=== PATIENT | female | born 1985 | race Caucasian/White ===

== ENCOUNTER 2019-01-18 07:05 | Inpatient (IN) | payer OTHER, SELFPAY ==
[2019-01-18 07:42] VITALS: BMI 27.6
[2019-01-18] MEDS: Lactated Ringers 1,000 ML 50 ML IV (07:50)
[2019-01-18] MEDS: Lactated Ringers 500 ML 999 ML IV ×2 (08:05→08:43)
[2019-01-18 08:16] LABS: Absolute Lymphocyte Count 2.51 X10^3/uL (0.83-4.51); Basophil# 0.03 X10^3/uL; Basophil% 0.3 % (0-1); Eosinophil# 0.06 X10^3/uL; Eosinophils% 0.5 % (0-5); Hematocrit 40.8 % (37-47); Hemoglobin 13.5 g/dL (12.0-15.0); Lymphocyte # 2.51 X10^3/ul (4.0); Lymphocyte % 21.6 % (19-41); Mean Corp Hgb Conc 33.1 g/dL (32-36); Mean Corpuscular Hgb 29.2 pg (27.0-32.0); Mean Corpuscular Volume 88.1 fL (81-99); Mean Platelet Vol. 9.3 fl (6.2-12.0); Monocyte# 0.97 X10^3/uL; Monocyte% 8.4 % (0-10); NRBC Flagged by Analyzer 0 % (0-5); Neutrophil # 7.97 X10^3/uL (2.7-7.7); Neutrophil % 68.7 % (47-70); Platelet Count 317 K/mm3 (150-450); RBC Distribution Width CV 13.8 % (11.6-14.6); RBC Distribution Width SD 44.3 fl (35.1-43.9); Red Blood Count 4.63 M/mm3 (4.2-5.4); White Blood Count 11.6 K/mm3 (4.4-11.0)
--- NOTE | 2019-01-18 08:18 | HP.PCM_ITS ---
History and Physical Date of Admission: 01/18/19 Macarena Steele is a 33 yo admitted 40 at weeks 2 days gestation by LMP=7w1d US in active labor; an elective IOL had been scheduled for this morning. course has been normal. She has a history of HSV for which she has been taking Valtrex for prophylaxis since 36 weeks. She is GBS negative. [facility] ANTEPARTUM RECORD - HISTORY AND PHYSICAL (01/18/2019) Name: MACARENA STEELE OB Physician: ZANDRA Hereford's Physician: UNDECIDED ...................................................................... : 1985 Age: 33 Address: [address] [place] [address] Phone: (h) [phone] (o) [phone] Insurance Carrier: MONET [id number] Emergency Contact: KAYCE FREITAS [phone] ...................................................................... Final KIT: 01/16/19 By Ultrasound: 7 weeks 1 day PARITY: (G-Total Pregnancies P-Fullterm,Premature,Induced AB,Spont AB, Ectopics, Multiple,Living) KIT CONFIRMATION: By LMP: 04/11/18 Final KIT: 01/16/19 BLOOD TYPE: scanned AFP: 1 HR PG: GBS: Rublla titer (>10 immune)-- Hepatatis B becca AG-- CULTURES:-- OB PROBLEM LIST: Decline CF and AFP. 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 Drug Use - denies use of street drugs Sexual Activity - Residence - lives in house, one and two stories Place of - [place] Spouse-Sig Other Name - Jayden Steele Spouse-Sig Other Occupation - [employer] worker Spouse-Sig Other Phone No - [phone] Children Name(s) - Kevyn Sandhu PRIOR DELIVERY HISTORY DEL DATE GEST LAB WT LB WT OZ TYPE ANES LABOR TX May 05 40 12 8 6 Vag Epidural No May 26 39 20 8 1 Vag Epidural No ANTEPARTUM FLOW CHART VISIT RTC FU F F NY U U DATE WK WKS HT PN HR M SS BP ED WT NY GL D EF ST __ ____ ___ __ __ ___ __ __ __ ___ __ __ __ ___ __ 01 Jan 40 JMW 6 38 V + + 118/68 0 193 - - 4 50 -2 24 Dec 39 JMW 1 38 V + + 128/68 sl 198 - - S 17 Dec 38 JMW 1 38 + + 112/74 sl 198 tr - 10 Dec 37 JMW 1 37 V + + 110/62 tr 194 tr - 2+ 50 -2 03 Dec 36 JMW 1 36 V + + 106/68 sl 195 tr - 2 50 -2 Nov JMW 2 34 + + 114/66 0 191 tr - Nov 15 JMW 3 31 + + 114/82 0 188 tr - Nov 12 JMW 3 28 + + 114/62 sl 187 tr - Oct 09 JMW 4 24 + + 116/64 0 180 tr - September 03 JMW 4 20 + + 110/68 0 176 - - 16 Aug 01 JMW 4 16 + O 104/64 0 174 - - Jun 27 JMW 4 U+ O 108/64 0 173 tr - ANTEPARTUM NOTE(S): Jan 16 2019: Induce per Request Jan 09 2019: Ctxs-mild, Good FM,Feeling Well Jan 02 2019: Ctxs-mild, Good FM Dec 26 2019: Ctxs-occas, Good FM Dec 19 2019: Doing well, GBS today, and LARC form signed Dec 05 2018: Doing Well Nov 14 2018: doing well, Good FM Oct 24 2018: CBC,OGCT Today,Good FM,Feeling Well Sep 26 2018: Glucola/Instructions given,Good FM Aug 28 2018: Sono Today,Feeling Better Aug 01 2018: Doing well, Declines AFP Jul 04 2018: PNV and NOB Today,Fatigue continues COMPREHENSIVE ANTEPARTUM NOTE(S): Jan 16 2019: Induction per Pit and AROM per Dr Rossi ramirez for 01/18/19 at [facility] level 3 with all paperwork completed signed and faxed with antepartum chart. JT Dec 25 2018: H taken to OB. tkg Jul 10 2018: O positive RI. Hgb 14.6 g/dl. TSH wnl. EB Jul 04 2018: Macarena presents here today for PNV and NOB. 33 y.o. G 3 P 2 non-smoker with history of x 2 (First in 2007 and Second in 2018, both started with Induction) and plans this delivery at [facility], with an Epidural. 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 Reports continuing with periodic nausea and fatigue, but otherwise feeling well. Brief review of major body changes and good nutrition and healthy snacks with ideal weight gain of 20- 25 lbs(guidelines given). Encouraged to drink 1-2 gallons of water/fluids daily with benefits of same discussed as well as she plans to breast feed. Discussed common discomforts in and helpful hints for each with handout given. Reviewed emotional changes from first through third trimester and ways to relax. Genetic screening form filled out and declines both AFP and CF with consent signed. Had chickenpox as a child and has no indoor cats. labs drawn via undersigned in (R) antecubital x 1 attempt with 23 g and labs sent to [facility]. STEFANIE NEW May 30 2019: Macarena Hector presents here today for Missed Menses appointment. 33 y.o. G 3 P 2 non-smoker with regular menses and LMP of 12-25-18 lasting her average of 4 days. UPT is positive today in our Office. Asks to have urine dipped as she has history of recurrent UTI's and was placed on daily antibiotic with last . Urine Dip: + Nitrites, small Leuks, trace Protein, Sp Gr - 1.010 and all others negative. Denies spotting/bleeding thus far and presents at 6 weeks 6 days with an approximate KIT of 01-16-19. History of x 2 with plans to deliver at [facility]. Currently taking an OTC Vitamin. Educational Materials given. Medication list up-dated. LAst pap screening in 2016 with normal results. STEFANIE May 30 2019: ok REVIEW OF SYSTEMS: GENERAL - Denies fever, or chills SKIN - Denies rash, new skin lesions, or change in moles EYES - Denies blurred vision, or change in visual acuity EARS - Denies ear pain, or difficulty hearing NOSE - Denies nasal congestion, discharge, or bleeding MOUTH - Denies sore throat, or difficulty swallowing NECK - Denies pain or swelling RESPIRATORY - Denies shortness of breath, cough, wheezing CARDIOVASCULAR - Denies palpitations, chest pain, orthopnea, PND, peripheral edema, syncope or claudication GASTROINTESTINAL - Denies nausea, vomiting, diarrhea, constipation, Denies abdominal pain, melena and or bright red blood GENITOURINARY - Denies dysuria, frequency of urination, urgency, or hesitancy MUSCULOSKELETAL - Denies joint or muscle pain, or back pain NEUROLOGICAL - Denies localized numbness, weakness, or tingling PSYCHIATRIC - Denies depression, anxiety, substance abuse or suicide attempts ENDOCRINE - Denies heat or cold intolerance, weight loss or gain, increasing thirst HEMATO-IMMUNOLOGIC - Denies easy bruising, bleeding, oral ulcerations or recurrent infections GENETICS SCREENING: Age 35+ years: No Thalassemia: No Neural Tube Defect: No Down Syndrome: No ONEAL-SACHS: No Sickle Cell Disease: No Hemophilia: No Musc. Dystrophy: No Cystic Fibrosis: No-declines screening Gem Chorea: No Mental Retardation: No Fragile X: No Other genetic: No Other defects: No SABs/still births: No Drugs since LMP: Yes INFECTION HISTORY: High risk AIDS: No High risk Hepatitis: No Exposed to TB: No Exposed to Herpes: No Rash/viral illness since LMP: No History of STD: No MENSTRUAL HISTORY: *Menses Amount/Duration: 4 daysMenses Regularity: RegularFrequency: monthlyMenarche (Age Onset): 14* PAST SUMMARY: PARITY: 1. Total Pregnancies............ 3 2. Full Term Pregnancies........ 2 3. Premature.................... 0 4. Abortions - Induced.......... 0 5. Abortions - Spontaneous...... 0 6. Ectopics..................... 0 7. Multiple Births.............. 0 8. Living Children.............. 2 PAST #1: Date of :.................. 06/13/07 Gestation Weeks:................ 39 Length of labor(hours):......... 20 Sex:............................ F Weight-lbs:............... 8 Weight-oz:................ 1 Type of Delivery:............... Vag Type of Anesthesia:............. Epidural Place of Delivery:.............. [place] Treatment of Labor?:.... No Comment: NONE PAST #2: Date of :.................. 04/19/17 Gestation Weeks:................ 40 Length of labor(hours):......... 12 Sex:............................ M Weight-lbs:............... 8 Weight-oz:................ 6 Type of Delivery:............... Vag Type of Anesthesia:............. Epidural Place of Delivery:.............. [place] Treatment of Labor?:.... No Comment: PHYSICAL EXAMINATION General Appearence: 33 yo female in no acute distress Vital Signs: AF, VSS Heart: RRR without rubs or gallops Lungs: CTA x 2 Breasts: deferred Abdomen: gravid Pelvis: Cervix: Presentation: cephalic Station: Fetus: Size: AGA Movement: present FHTs: 150 bpm baseline, moderate variability, with accels, no decels Uterus: Momo Q 2-5 minutes, palpating moderate Labs for : MACARENA STEELE since 04/21/2018 ORDER DATEIN DESCRIPTION VALUE UNITS RANGE A+ COMMENT CBC W/DIFF, AUTOMATED 01/18/19 NOTE Original Ordering Provider: Milagro Richey WBC 11.6 K/mm3 4.4-11.0 H RBC 4.63 M/mm3 4.2-5.4 HGB 13.5 g/dL 12.0-15.0 HCT 40.8 % 37-47 MCV 88.1 fL 81-99 MCH 29.2 pg 27.0-32.0 MCHC 33.1 g/dL 32-36 RDW CV 13.8 % 11.6-14.6 RDW SD 44.3 fl 35.1-43.9 H PLT 317 K/mm3 150-450 MPV 9.3 fl 6.2-12.0 NEUT% 68.7 % 47-70 LY% 21.6 % 19-41 MONO% 8.4 % 0-10 EO% 0.5 % 0-5 BASO% 0.3 % 0-1 IM GRAN % 0.500 % 0.0-0.9 IG% - Immature Granulocytes (promyelocytes, myelocytes and metamyelocytes) > 1% indicates that a LEFT SHIFT is Present. ABSOLUTE NEUT 8.0 X10 3/uL 2.0-7.7 H ABSOLUTE LYMPH 2.51 X10 3/uL 0.83-4.51 NRBC, FLAGGED 0 % 0-5 STREP GP B IGNACIA 12/19/18 STREP GP B IGNACIA Negative Negative . Reviewed by MILAGRO 24-35 Week Labs 10/24/18 HCT/HGB scanned Reviewed by MILAGRO [facility] 07/04/18 HIV Test negative (scanned) Negative Hepatitis B Scanned Negative Hepatitis C Scanned Negative RPR Scanned Non - Reactive Reviewed by KEITH [facility] 07/04/18 Blood Type scanned O Pos Reviewed by KEITH BALDERASP,RFX APTIMA HPV ALL PTHw 05/30/18 DIAGNOSIS: NEGATIVE FOR INTRAEPITHELIAL LESION AND MALIGNANCY. SPECIMEN ADEQUACY: w Satisfactory for evaluation. Endocervical and/or squamous metaplastic cells (endocervical component) are present. . w The HPV DNA reflex criteria were not met with this specimen result therefore, no HPV testing was performed. . Reviewed by [facility] PROVIDER SIGNATURE ( REQUIRED) Impression: IUP at 40w2d Active labor GBS negative Hx of HSV, on HSV prophylaxis, no evidence of outbreak Cat 1 FHTs Plan: Admit to L&D Continuous EFM Epidural on request Expectant management Anticipate vaginal delivery
[2019-01-18] MEDS: fentaNYL-bupivacaine (epidural) 100 ML BAG EPIDURAL (08:49)
--- NOTE | 2019-01-18 09:10 | PCM.PN.OB ---
Subjective: Comfortable with epidural; feeling light pressure with contractions; spouse at bedside and supportive Objective: AVSS FHTs: 130 baseline, moderate variability, with accels, no decels UCs: Q 2-5 Cervix: 7.5/90/-1 per RN at 0900 - Physical Exam General: Alert, Oriented x3, Cooperative, No apparent distress Neurological: Cranial nerves II-XII grossly intact Psych/Mental Status: Normal Affect, Appropriate, Alert and oriented to time, place, person, mood and affect Weight: 193 lb Body Mass Index (BMI) 27.6 Intake and Output for Last 24 Hours 01/16/19 01/17/19 01/18/19 23:59 23:59 23:59 Intake Total 500 / 500 Balance 500 / 500 Laboratory Tests Past 24 Hrs 01/18/19 01/18/19 07:50 07:50 WBC 11.6 H RBC 4.63 Hgb 13.5 Hct 40.8 MCV 88.1 MCH 29.2 MCHC 33.1 RDW Std Deviation 44.3 H RDW Coeff of Park 13.8 Plt Count 317 MPV 9.3 Immature Gran % (Auto) 0.500 Neut % (Auto) 68.7 Lymph % (Auto) 21.6 [place] % (Auto) 8.4 Eos % (Auto) 0.5 Baso % (Auto) 0.3 Absolute Neuts (auto) 8.0 H Absolute Lymphs (auto) 2.51 Nucleated RBC % 0 Blood Type Pending Antibody Screen Pending Medical Necessity - Tobacco Use Smoking Status: Never smoker Assessment/Plan Assessment: IUP at 40w2d GBS neg Hx of HSV, on antiviral prophylaxis, no evidence of outbreak Cat 1 FHTs Plan: Expectant management Anticipate vaginal delivery
--- NOTE | 2019-01-18 11:24 | PCM.PN.OB ---
Subjective: Comfortable with epidural; feeling pressure; spouse at bedside and supportive Objective: FHTs: 125 baseline, moderate variability, with accels, no decels UCs: Q 2-3 minutes Cervix: R ant. lip/100/m - Physical Exam General: Alert, Oriented x3, Cooperative, No apparent distress Neurological: Cranial nerves II-XII grossly intact Psych/Mental Status: Normal Affect, Appropriate, Alert and oriented to time, place, person, mood and affect Weight: 193 lb Body Mass Index (BMI) 27.6 Intake and Output for Last 24 Hours 01/16/19 01/17/19 01/18/19 23:59 23:59 23:59 Intake Total 500 / 500 Balance 500 / 500 Laboratory Tests Past 24 Hrs 01/18/19 01/18/19 07:50 07:50 WBC 11.6 H RBC 4.63 Hgb 13.5 Hct 40.8 MCV 88.1 MCH 29.2 MCHC 33.1 RDW Std Deviation 44.3 H RDW Coeff of Park 13.8 Plt Count 317 MPV 9.3 Immature Gran % (Auto) 0.500 Neut % (Auto) 68.7 Lymph % (Auto) 21.6 [place] % (Auto) 8.4 Eos % (Auto) 0.5 Baso % (Auto) 0.3 Absolute Neuts (auto) 8.0 H Absolute Lymphs (auto) 2.51 Nucleated RBC % 0 Blood Type O POSITIVE Antibody Screen NEGATIVE Medical Necessity - Tobacco Use Smoking Status: Never smoker Assessment/Plan Assessment: IUP @ 40 weeks 2 days GBS Neg HX HSV, on antiviral prophylaxsis, no evidence of outbreak Active labor Cat 1 FHTs Plan: AROM for moderate amount clear fluid Patient to R side to reduce anterior lip Anticipate vaginal delivery
[2019-01-18] MEDS: Oxytocin 30 units/NS 500 ml 30 UNITS/500 ML IV.SOLN 334 UNITS IV (12:19)
--- NOTE | 2019-01-18 12:42 | RAD_ITS ---
STUDY: X-RAY - ABDOMEN/PELVIS REASON FOR EXAM: Female, 33 years old. Possible foreign body. TECHNIQUE: 2 images were obtained. COMPARISON: None. FINDINGS: Normal visualized lung bases. There is an unremarkable bowel gas pattern. There is no demonstrated free abdominal air. The visualized liver, spleen and kidneys are grossly normal in size and morphology. No radiopaque foreign body is seen. Large uterus. Normal visualized osseous structures. RAD/Abdomen Single View (Portable) IMPRESSION: No radiopaque foreign body is seen. Electronically Signed: Sohail Grullon, at 13:32 EDT , Service support ,
--- NOTE | 2019-01-18 12:52 | PCM.OPRPT ---
Vaginal Delivery Active labor Amniotic Membrane Rupture Type: Artificial Rupture of Membrane time: 1120 Amniotic Fluid Description: Clear Final KIT: 01/16/19 Final KIT Source: US <20 weeks Gestational age: 40 Weeks and 2 Days Date of Procedure: 01/18/19 Pre-Operative Diagnosis: IUP at 40 weeks 2 days Post-Operative Diagnosis: Surgery/ Procedure Performed: Spontaneous Vaginal Delivery Type of Anesthesia: Epidural Description of Procedure: Progressed rapidly to complete, pushed well and delivered a viable male over an intact perineum; tight nuchal cord x 2 noted, unable to reduce on perineum; shoulders delivered with strong maternal effort, nuchal cord reduced easily after delivery, infant placed on mother's abdomen, dried and stimulated, APGARs 8/9; Placenta delivered spontaneously, Nia mechanism, intact, 3-vessel cord, central insertion. No perineal lacerations noted upon inspection; EBL 350ml Presentation: Vertex, SUSSY Placental Delivery Description: Spontaneous Placenta Disposition: [facility] Cord Vessel Description: 3 Vessels Cord Entanglement: Around neck x 2, tight Infant A gender: Male (1 minute): 8 (5 minute): 9 Episiotomy Description: None Laceration: None Medications given after delivery: IV Pitocin
--- NOTE | 2019-01-18 13:02 | DCINST_ITS ---
<Amber Howard - Last Filed: 01/18/19 13:02> Discharge Diet: No Restrictions Discharge Activity: Return to Normal Activity, May Shower, May Take a Tub Bath May resume sexual activity in: 6 weeks Weight Bearing Status: Weight bearing as tolerated Lifting Restrictions: Nothing heavier than the baby for two weeks Additional Activity Instructions:: No cooking, cleaning or shopping for two weeks; No long car rides for two weeks Additional Instructions: If you experience any of the following, contact your healthcare provider. * Bleeding that soaks a pad every hour for 2 hours * Fever 100.4 or higher * Unrelieved incision or abdominal pain * Swelling, redness, discharge or bleeding from your incision or episiotomy site * Your incision begins to separate * Problems urinating (including inability to urinate or burning while urinating). * Visual changes * Severe headache * Flu-like symptoms * Pain or redness in one of both of your breasts * Pain, warmth, tenderness or swelling in your legs, especially the calf area * Frequent nausea and vomiting * Symptoms of depression or anxiety If you experience any of the following, call 911 or go to the nearest Emergency Room. * Chest pain * Problems breathing * Seizure activity * Partial or complete paralysis of a body part, slurred speech, weakness or drooping of the face, or a sudden inability to walk or hold your balance Allergies/Adverse Reactions: Allergies No Known Allergies Allergy (Verified 04/19/17 07:24) Medications to take at Discharge Sertraline HCl [Zoloft] 25 mg PO QHS 04/19/17 Pnv No.95/Ferrous Fum/Folic AC [ Caplet] 1 ea PO DAILY 01/18/19 Ibuprofen [Motrin] 600 mg PO Q8H PRN PRN #30 tab 01/19/19 The following prescriptions were given: Ibuprofen [Motrin] 600 mg PO Q8H PRN PRN #30 tab PRN Reason: Pain Score 1-10/10 Transmission Status: Pending to [id number] Please Follow Up With: Claude Richey MD When: 6 weeks Primary Care Physician: Claude Zhang MD [Primary Care Provider] - Test Results: Test results from this visit will be discussed in further detail at your follow- up appointment, if applicable. Proposed Discharge Date: 01/19/19 <Haley Hernández - Last Filed: 01/19/19 19:53> Additional Instructions: If you experience any of the following, contact your healthcare provider. * Bleeding that soaks a pad every hour for 2 hours * Fever 100.4 or higher * Unrelieved incision or abdominal pain * Swelling, redness, discharge or bleeding from your incision or episiotomy site * Your incision begins to separate * Problems urinating (including inability to urinate or burning while urinating). * Visual changes * Severe headache * Flu-like symptoms * Pain or redness in one of both of your breasts * Pain, warmth, tenderness or swelling in your legs, especially the calf area * Frequent nausea and vomiting * Symptoms of depression or anxiety If you experience any of the following, call 911 or go to the nearest Emergency Room. * Chest pain * Problems breathing * Seizure activity * Partial or complete paralysis of a body part, slurred speech, weakness or drooping of the face, or a sudden inability to walk or hold your balance Test Results: Test results from this visit will be discussed in further detail at your follow- up appointment, if applicable.
[2019-01-18 16:05] VITALS: BP 108/69; PULSE 101; RESP 18; TEMP 37.2
[2019-01-18 21:00] VITALS: BP 122/75; PULSE 110; RESP 18; TEMP 38.5; O2SAT 95
[2019-01-18] MEDS: Ibuprofen 600 MG Tablet PO (21:20)
[2019-01-18 22:15] VITALS: TEMP 36.7
[2019-01-18 23:15] VITALS: BP 100/64; PULSE 101; RESP 16
[2019-01-19] VITALS (7 sets, daily range): BP systolic 102–116; BP diastolic 59–92; PULSE 81–116; RESP 16–18; TEMP 36.1–37.9; O2SAT 100
[2019-01-19] MEDS: Ibuprofen 600 MG Tablet PO ×3 (04:02→18:23)
[2019-01-19 07:37] LABS: Hematocrit 38.9 % (37-47); Hemoglobin 12.6 g/dL (12.0-15.0); Mean Corp Hgb Conc 32.4 g/dL (32-36); Mean Corpuscular Hgb 28.6 pg (27.0-32.0); Mean Corpuscular Volume 88.2 fL (81-99); Platelet Count 265 K/mm3 (150-450); RBC Distribution Width CV 13.7 % (11.6-14.6); RBC Distribution Width SD 44.4 fl (35.1-43.9); Red Blood Count 4.41 M/mm3 (4.2-5.4); White Blood Count 11.9 K/mm3 (4.4-11.0)
--- NOTE | 2019-01-19 10:14 | PCM.PN.OB ---
Subjective: Feeling well, tolerating diet, passing flatus, has has a bowel movement, infant nursing well; minor perineal discomfort well controlled by Ibuprofen Objective: AVSS WBC 11.9 this AM, 11.6 on admission Breasts soft, nipples atraumatic Fundus firm, midline, u/1, lochia small Perineum without bruising, mild edema noted - Physical Exam General: Alert, Oriented x3, Cooperative, No apparent distress HEENT: PERRLA, EOMI Oral: Moist Mucosa Neck: Supple Lungs: Clear to auscultation, Normal air movement Cardiovascular: Regular rate Abdomen: Bowel Sounds Present, Soft, Non Tender, Non-Distended, Passing Flatus Extremities: No edema, Capillary Refill Less than 3 Seconds, No Calf Tenderness Musculoskeletal: No Tenderness to Palpation of Joints or Extremities Neurological: Cranial nerves II-XII grossly intact, Deep Tendon Reflexes 2+/4 and Symmetrical Psych/Mental Status: Normal Affect, Appropriate, Alert and oriented to time, place, person, mood and affect Vital Signs Temp Pulse Resp BP Pulse Ox 97.0 F L 83 16 107/64 95 01/19/19 08:18 01/19/19 08:18 01/19/19 08:18 01/19/19 08:18 01/18/19 21:00 Oxygen Delivery Method Room Air Weight: 193 lb Body Mass Index (BMI) 27.6 Intake and Output for Last 24 Hours 01/17/19 01/18/19 01/19/19 23:59 23:59 23:59 Intake Total 2124.17 / 2124.17 Output Total 1200 / 1200 Balance 924.17 / 924.17 Laboratory Tests Past 24 Hrs 01/19/19 07:30 WBC 11.9 H RBC 4.41 Hgb 12.6 Hct 38.9 MCV 88.2 MCH 28.6 MCHC 32.4 RDW Std Deviation 44.4 H RDW Coeff of [place] 13.7 Plt Count 265 MPV 9.0 Medical Necessity - Tobacco Use Smoking Status: Never smoker Assessment/Plan Assessment: 33 yo G3 now P3 PP Day #1 Normal involution Febrile at 9 hours post delivery, afebrile since Plan: Discharge instructions reviewed May discharge home PP day #2 if remains afebrile
--- NOTE | 2019-01-19 11:12 | PCM.PN.OB ---
Subjective: Call received from Diana ROBISON, stating that patient is frustrated that she can't be dc'd home today as a result of 101.3 temp at 2100 last night, asking if she can be discharged at 2100 this evening if she remains afebrile; denies abdominal tenderness or foul smelling lochia; states I feel fine. - Physical Exam Vital Signs Temp Pulse Resp BP Pulse Ox 97.0 F L 83 16 107/64 95 01/19/19 08:18 01/19/19 08:18 01/19/19 08:18 01/19/19 08:18 01/18/19 21:00 Oxygen Delivery Method Room Air Weight: 193 lb Body Mass Index (BMI) 27.6 Intake and Output for Last 24 Hours 01/17/19 01/18/19 01/19/19 23:59 23:59 23:59 Intake Total 2124.17 / 2124.17 Output Total 1200 / 1200 Balance 924.17 / 924.17 Laboratory Tests Past 24 Hrs 01/19/19 07:30 WBC 11.9 H RBC 4.41 Hgb 12.6 Hct 38.9 MCV 88.2 MCH 28.6 MCHC 32.4 RDW Std Deviation 44.4 H RDW Coeff of [place] 13.7 Plt Count 265 MPV 9.0 Medical Necessity - Tobacco Use Smoking Status: Never smoker Assessment/Plan Assessment: 33 yo G3 now P3 PP Day #1 PP course otherwise uneventful Febrile at 9 hours post delivery, afebrile since Plan: Discussed with Dr. Mcgarry Advise against discharge until PP day #2 If patient insists on being dc'd home at 2100 this evening, instruct to check temperature frequently with thermometer and call if elevated 100.4F to 101.0F
--- NOTE | 2019-01-19 12:45 | NURSING ---
late [id number]- notified Thu Howard of temp 101 at 2100 last evening and patient requesting 24 hour discharge
--- NOTE | 2019-01-19 12:54 | NURSING ---
patient voicing frustration about staying until tomorrow before discharge, nurse called and spoke with Thu Howard again. Ok for d/c after 2100 tonight as long as no temps until then and patient agreeable to check temps frequently at home and to call office if temp greater than 101 or tender abdomen or foul smelling discharge. Relayed to patient and and agreeable to this
--- NOTE | 2019-01-19 15:47 | CASEMGMT ---
Social Work Brief Assessment - Labor and Delivery Unit Patient Address:[address] [address] Phone number: [phone] Date of Referral/Notification: 01/19/2019 Time of Referral: 39 Referred By: Dr. Mcgarry Reason for Referral: maternal history of anxiety and depression; on Zoloft Date of Intervention: 01/19/2019 Time of Intervention: 1545 Informant: Medical record and mother of baby (MOB) Christine Hooker; father of baby (FOB) Jayden Hooker also present for part of assessment History: CANELO is a 33 year old female, G3, P2 to 3 after delivery of baby boy Wily Hooker. CANELO's care started at 12 weeks and appearing consistent thereafter. MOB reports was planned. Wily was born weighing 8 pounds 15 ounces, Apgars 7 and 9 at 1 and 5 minutes of life. MOB and FOB have been for 2 years. MOB denies any form of abuse in this relationship. MOB stays at home and FOB works fultime as a answering service telephone operator. Other children at home include Phoebe, age 11 (from a prior relationship) and Kevyn (born 04/2017) from FOB. [place] farm, and have animals to take care of. CANELO has an associates degree, is able to read, write, and to understand what is read. CANELO reports history of depression and anxiety, though no depression history, and is currently on Zoloft. MOB reports will stay on Zoloft as has been on this for years and finds this medicine to work for MOB. No reports or indications of substance use for this family. Assessment: MOB reports to feel prepared for home going, to have all of the supplies needed, is the baby, but knows what other options are if breast feeding does not work out as this is the MOB's 3rd child. Plan for FOB to be home over the weekend, and possibly on Tuesday if needed for some extra support. CANELO's mother has also been providing some support, helping to take care of the other children since MOB and FOB have been in the hospital. MOB denies any issues or concerns with home going. MOB polite, cooperative, appropriate affect and mood. MOB held good eye contact. MOB denies needs for any community resources, denies need for WIC. No reported concerns from nursing staff regarding mother/child bonding or interactions. Plan: MOB and baby to home when ready. MOB provided with depression packet, and resources reviewed for this topic. MOB plans to stay on antidepressant medication in the period. No further needs requested or indicated. -MARISOL Conte, MAS[employer] FOREMAN/SUPERINTENDANT
--- NOTE | 2019-01-19 19:26 | PCM.PN.OB ---
Subjective: Informed by RN reported feeling unwell with chills and fever. Chart reviewed. Patient admitted in labor with uncomplicated delivery and epidural. On arrival patient reported feeling feverish and chills. She later reported feeling hot during our discussion as though her high temperature was breaking. Denies headache, nausea, vomiting, shortness of breath, chest pain, leg pain or swelling, diarrhea, dysuria, frequency, urgency. Breast feel blanton today. She is and nursing well. She has no lightheadness or palpitations. +cramping intermittently. She has some cramping with urination also. She reports she wants to go home today, but she is concerned there may be something else wrong. Objective: AVSS - Physical Exam General: Alert, Oriented x3, Cooperative, No apparent distress, - - Tearful HEENT: Atraumatic, Normocephalic Lungs: Clear to auscultation, Normal air movement, No rhonchi, No wheeze, No rales Cardiovascular: Regular rate, Normal S1, Normal S2, No murmurs, Tachycardic Abdomen: Soft, Non Tender, Non-Distended, - - Fundus firm and nontender at 2 FW below umbilicus, lochia moderate without odor Extremities: No edema, No Calf Tenderness, - - no palpable cords Neurological: Neuro grossly intact Psych/Mental Status: Normal Affect, Appropriate, Alert and oriented to time, place, person, mood and affect Comment: Breast warm, full with no nipple cracks Vital Signs Temp Pulse Resp BP Pulse Ox 100.0 F H 116 H 18 116/92 H 100 01/19/19 16:53 01/19/19 16:53 01/19/19 16:53 01/19/19 16:53 01/19/19 16:53 Oxygen Delivery Method Room Air Weight: 87.543 kg Body Mass Index (BMI) 27.6 Intake and Output for Last 24 Hours 01/17/19 01/18/19 01/19/19 23:59 23:59 23:59 Intake Total 2124.17 / 2124.17 Output Total 1200 / 1200 Balance 924.17 / 924.17 Laboratory Tests Past 24 Hrs 01/19/19 07:30 WBC 11.9 H RBC 4.41 Hgb 12.6 Hct 38.9 MCV 88.2 MCH 28.6 MCHC 32.4 RDW Std Deviation 44.4 H RDW Coeff of [place] 13.7 Plt Count 265 MPV 9.0 Medical Necessity - Tobacco Use Smoking Status: Never smoker Assessment/Plan 33yo PPD#1 s/p uncomplicated with fever, no leukocytosis. -I suspect milk is coming in accounting for mild increase in temperature today; however, no clear source for origin of fever last night and it was extended time period from delivery and epidural. No risk factors for infection related to delivery and no evidence of endometritis. Pt reported feeling better during our encounter after she reported her fever broke. -U/A, Ucx -Pt inquired about discharge, previously indicated plan to go home AMA this evening. Reviewed that may be discharged after 24h without fever (approximately 2100h this evening). Pt is agreeable to this and will take home temperatures twice daily. Infection and cardiopulmonary si/sx reviewed.
[2019-01-19 20:56] LABS: Mucous, Urine 0 SEEN /hpf (<or=2+)
[2019-01-19 20:57] LABS: Color, Urine Yellow (Yellow); Glucose, Dipstick Normal (Normal); Ketone-Dipstick Negative (Negative); Leukocyte Esterase-Dipstick 100 /ul (Negative); Nitrite-Dipstick Positive (Negative); Occult Blood-Urine 150 /ul (Negative); Protein-Dipstick 30 mg/dl (Negative); Specific Gravity, Urine 1.015 (1.002-1.030); Urine Bilirubin Dipstick Negative (Negative); Urine Clarity Clear (Clear); Urine Urobilinogen Normal (Normal)
[2019-01-19 21:06] LABS: Bacteria 2+ /hpf (None Seen); Red Blood Cells-Urine 10-25 SEEN /hpf (0-5); Squamous Epithelial Cells - UA 0-5 SEEN /hpf (5-10); White Blood Cells 10-25 SEEN /hpf (0-5)
== END 2019-01-19 21:34 | disposition home or self-care (01) | DRG 806 ==
PROVIDERS: Advanced Practice Midwife; Obstetrics & Gynecology; Admitting Provider Obstetrics & Gynecology; Family Provider Family Medicine; PCP Family Medicine; Referring Provider Obstetrics & Gynecology; Visit Provider Obstetrics & Gynecology
DX: O69.1XX0 Labor and delivery complicated by cord around neck, with compression, not applicable or unspecified (principal); O86.4 Pyrexia of unknown origin following delivery; Z37.0 Single live birth; Z3A.40 40 weeks gestation of pregnancy; Z86.19 Personal history of other infectious and parasitic diseases; Z87.440 Personal history of urinary (tract) infections
CPT/HCPCS: 59050; 74018; 81001; 85025; 85027; 86850; 86900; 86901; 87077; 87086; 87088; 87186; 99218; J7120; G0378

== ENCOUNTER → 2024-05-18 | Outpatient (CLI) | payer OTHER, SELFPAY ==
--- NOTE | 2024-05-18 | IMM_PTH ---
PATIENT: MACARENA STEELE [facility] U[id number] AGE/SX: 39/F ROOM: RE05/18/[address]: Dr. Donna Forte DO : 1985 BED: DIS: 05/18/2024 SPEC #: [id number] RECD: 05/22/24 11:23 STATUS: YAEL REQ #: [id number] CATHERINE: 05/18/24 00:[address]: Donna Forte DEPT: IMMUNOHISTOCHEMISTRY RECD BY: De Casey ENTERED: 05/22/24 11:23 SP TYPE: IMMUNO OTHR DR: Dr. Claude Zhang MD Tissues: C - Uterine cervix, NOS Procedures: p16 (initial) KI-67 (add) PHYSICIAN & INSTITUTION [place] [id number] SPECIMEN INFORMATION: Tissue Source: C- 11o'clock Clinical Info: ASC-H Specimen Number: [id number] CPT code: 47438,82188 METHODOLOGY: Deparaffinized sections of prefer/formalin-fixed tissue or PAP/DQ stained slides are incubated with monoclonal/polyclonal antibodies/oligonucleotide probes. Localization is made via biotin free immunoperoxidase method. Appropriate controls are performed and reacted as expected. Results on target cell population are indicated in the following table: RESULTS: ANTIBODY / CLONE RESULT Block C P16 (E6H4) positive, block staining Ki-67 (30-9) positive, moderate to high These tests were developed and their performance characteristics determined by [facility]. They may not have been cleared or approved by the U.S. Food and Drug Administration. The FDA has determined that such clearance or approval is not necessary. The above immunohistochemical/dualISH markers are ordered and reviewed by the Pathologist. INTERPRETATION: C. Cervix, 11o'clock, biopsy: Moderate squamous dysplasia. This case has been reviewed in consultation with Dr. Godfrey who concurs with the above diagnosis. IDC:[email or web address] 05/22/2024
--- NOTE | 2024-05-18 14:30 | CER_PTH ---
PATIENT: MACARENA STEELE [facility] U[id number] AGE/SX: 39/F ROOM: RE05/18/[address]: Dr. Donna Forte DO : 1985 BED: DIS: 05/18/2024 SPEC #: [id number] RECD: 05/18/24 15:53 STATUS: YAEL PICKERING #: [id number] CATHERINE: 05/18/24 14:[address]: Donna Forte DEPT: SURGICAL PATHOLOGY RECD BY: Ariana Pizarro ENTERED: 05/21/24 08:40 SP TYPE: CERV OTHR DR: Dr. Claude Zhang MD Tissues: A - Endocervical B - Uterine cervix, NOS C - Uterine cervix, NOS Procedures: Surgery Specimen Level IV HEADER OPERATION: Colposcopy PRE-OP DIAGNOSIS: ASC-H TISSUE SUBMITTED: A- ECC, B- 6o'clock, C- 11o'clock MICROSCOPIC DIAGNOSIS A. Endocervical curettings: Scant desquamated fragments of benign ecto and endocervical epithelium and mucous. Negative for dysplasia. B. Cervix, 6o'clock, biopsy: A fragment of benign endocervical mucosa with acute and chronic inflammation. Negative for dysplasia. C. 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 Moderate acute and chronic inflammation. See comment. 05/22/2024 COMMENT C. Immunohistochemistry ([id number]) supports the above diagnosis. This case has been reviewed in consultation with Dr. Chapa who concurs with the above diagnosis. IDC:PW MICROSCOPIC DESCRIPTION Slides are reviewed. GROSS DESCRIPTION A. Received in fixative is a metallic brush with adherent minute fragments of childers-red tissue and labeled with the patient's name and and designated per the requisition as ECC BRUSH. The material is dislodged from the brush and submitted for cell block preparation in one cassette. B. Received in fixative is one container labeled with the patient's name and designated 6o'clock. The specimen consists of one irregular fragment of light childers soft tissue that measures 0.3 x 0.3 x 0.2 cm. The specimen is totally submitted in one cassette. C. Received in fixative is one container labeled with the patient's name and designated 11o'clock. The specimen consists of multiple irregular fragments of light childers soft tissue that in aggregate measure 0.8 x 0.5 x 0.1 cm. The specimen is totally submitted in one cassette. SJ 05/21/2024 TC:5 CPT:97802q8
== END | disposition home or self-care (01) ==
LOC: LABSPEC 14:44
PROVIDERS: PCP Family Medicine; Referring Provider Obstetrics & Gynecology; Visit Provider Obstetrics & Gynecology
DX: N72 Inflammatory disease of cervix uteri (principal)
CPT/HCPCS: 88305; 88341; 88342

== ENCOUNTER → 2024-06-07 | Outpatient (CLI) | payer OTHER, SELFPAY ==
--- NOTE | 2024-06-07 12:31 | US_ITS ---
PROCEDURE: PELVIC W/ TRANSVAGINAL REASON FOR EXAM: Pelvic pain. LMP: April 06, 2024. TECHNIQUE: Transabdominal and transvaginal pelvic ultrasound COMPARISON: None. FINDINGS: Measurements: Uterus: 9.5 cm x 6 cm x 3.7 cm with a volume of 110 mL Endometrial Thickness: 3.5 mm. It is hyperechoic. Right Ovary: 2.4 cm x 1.5 cm x 1.4 cm with a volume of 2.75 mL. Left Ovary: 1.9 cm x 1.5 cm x 1.1 cm with a volume of 1.72 mL. TRANSABDOMINAL: Uterus: Normal size, myometrial echotexture, and contour. Endometrium: Unremarkable. Right ovary: Normal size and echotexture. Left ovary: Normal size and echotexture. No large pelvic mass identified. Transvaginal sonography was performed to better visualize the endometrium. TRANSVAGINAL: Uterus: Anteverted. Normal contour and myometrial echotexture. Endometrium: Normal echotexture. Right ovary: Normal size and echotexture. Left ovary: Normal size and echotexture. Other adnexal findings: None. Cul-de-sac: No free intraperitoneal fluid identified. No tenderness. US/Pelvic w/ Transvaginal IMPRESSION: NORMAL TRANSABDOMINAL AND TRANSVAGINAL PELVIC ULTRASOUND. Reading Location: [id number]
[2024-06-07 13:04] LABS: Hematocrit 41.9 % (37-47); Hemoglobin 14.1 g/dL (12.0-15.0); Mean Corp Hgb Conc 33.7 g/dL (32-36); Mean Corpuscular Hgb 29.1 pg (27.0-32.0); Mean Corpuscular Volume 86.4 fL (81-99); Platelet Count 280 K/mm3 (150-450); RBC Distribution Width CV 13.3 % (11.6-14.6); RBC Distribution Width SD 42.4 fl (35.1-43.9); Red Blood Count 4.85 M/mm3 (4.2-5.4); White Blood Count 9.3 K/mm3 (4.4-11.0)
== END | disposition home or self-care (01) ==
LOC: US 12:15 → OPUS 12:20
PROVIDERS: PCP Family Medicine; Referring Provider Obstetrics & Gynecology; Visit Provider Obstetrics & Gynecology
DX: Z01.818 Encounter for other preprocedural examination (principal)
CPT/HCPCS: 36415; 76830; 76856; 85027; 86850; 86900; 86901

== ENCOUNTER 2024-06-12 12:46 | Day surgery (SDC) | payer OTHER, SELFPAY ==
[2024-06-12] VITALS (9 sets, daily range): BP systolic 115–140; BP diastolic 71–96; PULSE 72–98; RESP 16–18; TEMP 36.8–37.1; O2SAT 96–100; BMI 25.2
--- NOTE | 2024-06-12 | IMM_PTH ---
PATIENT: MACARENA STEELE LOC: [facility] [place] [facility] U#:[id number] AGE/SX: 39/F ROOM: RE06/12/[address]: Dr. Donna Forte DO : 1985 BED: DIS: 06/12/2024 SPEC #: [id number] RECD: 06/14/24 13:07 STATUS: YAEL REQ #: [id number] CATHERINE: 06/12/24 00:[address]: Donna Forte DEPT: IMMUNOHISTOCHEMISTRY RECD BY: De Casey ENTERED: 06/14/24 13:08 SP TYPE: IMMUNO OTHR DR: Dr. Claude Zhang MD Tissues: Uterine cervix, NOS Procedures: p16 (initial) KI-67 (add) PHYSICIAN & INSTITUTION [place] [id number] SPECIMEN INFORMATION: Tissue Source: Cervical leep *suture of 12o'clock* Clinical Info: Atypical squamous cell cannot exclude high grade squamous intraepithelial lesion on cytologic smear of cervix (ASC-H) Specimen Number: [id number] CPT code: 90412,85605u2 METHODOLOGY: Deparaffinized sections of prefer/formalin-fixed tissue or PAP/DQ stained slides are incubated with monoclonal/polyclonal antibodies/oligonucleotide probes. Localization is made via biotin free immunoperoxidase method. Appropriate controls are performed and reacted as expected. Results on target cell population are indicated in the following table: RESULTS: ANTIBODY / CLONE RESULT Block 2 P16 (E6H4) positive, focal block staining Ki-67 (30-9) positive, moderate Block 3 P16 (E6H4) positive, focal block staining Ki-67 (30-9) positive, low to moderate Block 4 P16 (E6H4) negative Ki-67 (30-9) positive, low to moderate These tests were developed and their performance characteristics determined by [facility]. They may not have been cleared or approved by the U.S. Food and Drug Administration. The FDA has determined that such clearance or approval is not necessary. The above immunohistochemical/dualISH markers are ordered and reviewed by the Pathologist. INTERPRETATION: Cervix, leep colonization: Focal moderate squamous dysplasia with HPV changes. 06/15/2024
[2024-06-12] MEDS: 0.9% Normal Saline (1000mL) 1,000 ML 15 ML IV (13:20)
--- NOTE | 2024-06-12 13:24 | HP.PCM_ITS ---
History and Physical Date of Admission: 06/12/24 Intake Vital Signs 05/18/2513:03 06/11/2507:50 06/11/2512:08 Height 5 ft 10 in 5 ft 10 in 5 ft 10 in Weight: 177 lb 8 oz BMI 25.4 BP 139/87 H Intake Visit Reasons: LEEP/possible BS Apiculturist Required: No Is patient in pain?: No Allergies No Known Allergies Allergy (Verified 06/11/24 13:06) Medications ?Medication ?Instructions ?Recorded ?Confirmed ?Type L norgest/E estradiol-E estrad 1 tab PO QDAY 04/19/24 06/11/24 History 0.15 mg-30 mcg (84)/10 mcg(7) tabs,3mos (Ashlyna) lorazepam 1 mg tablet (Ativan) 1 mg PO QDAY PRN anxiety 05/18/24 History sertraline 50 mg tablet (Zoloft) 50 mg PO QDAY 05/18/24 06/11/24 History spironolactone 25 mg tablet 25 mg PO QDAY #90 tabs 05/18/24 06/11/24 Rx valacyclovir 1 gram tablet 1,000 mg PO BID PRN HERPES 05/18/2405/20 History (Valtrex) Post menopausal: No Patient : No : No PFSH Medical History Wears contact lenses Syncope Non-smoker Anxiety Genital herpes UTI (urinary tract infection) Surgical History S/P ureteral reimplantation History of surgical removal of pilonidal cyst (~2019) Family History Mother DiabetesGrandmother No problems noted. Grandmother Breast cancerFather Hypertension Social History Smoking Status: Never smoker alcohol intake: never substance use type: does not use caffeine: No what type of physical activity do you participate in: walking frequency: 3-4 times per week seatbelt use: always do you feel safe at home: Yes additional social history: - Jayden HPI LEEP/possible BS Details: MACARENA STEELE is a 39 year old who presents for a preop exam. She is scheduled currently for a LEEP and IUD placement for contraception.. History 3 Elective abortions Hx Para 3 Spontaneous abortions Hx # Term Pregnancies Ectopic pregnancies Hx # Pregnancies Multiple births # of living children Past Pregnancies Del. Date Name GA/Weeks Outcome Route Bth Weight [facility] Unknown Phoebe Unknown Kevyn Unknown Ty ROS Const ROS Unobtainable: All systems reviewed & are unremarkable except as noted in H Resp Resp: Reports system reviewed and no additional complaints, except as documented; Denies cough GI GI: Reports as per HPI Psych Psych: Reports system reviewed and no additional complaints, except as documented Exam Const General: cooperative, healthy appearing, comfortable and no acute distress Resp Effort & Inspection: normal respiratory effort Skin General: no rashes or lesions noted Psych Appearance: grossly normal Speech and Movement: speech and movement normal Coding Level of Care Code Off vis,est,level 4 Diagnoses Atypical squamous cells cannot exclude high grade squamous intraepithelial l esion on cytologic smear of cervix (ASC-H) R87.611 Assessment and Plan Assessment and Plan (1) Atypical squamous cells cannot exclude high grade squamous intraepithelial lesion on cytologic smear of cervix (ASC-H): Status: Acute Comment: HPV+ 03/2024-[place] 05/18/24, ASCUS HPV+ 12/2022 Plan: After discussing the patient's diagnosis and treatment plan options, patient wishes to proceed with surgical management. I have discussed with the patient the risks, benefits, and alternatives of the procedure which include but are not limited to risks of anesthesia, bleeding, infection, possible damage to bowel, bladder, or surrounding vasculature which could lead to additional surgery to evaluate any complications. Patient agrees to procedure and wishes to proceed. ACOG/uptodate references given for additional information regarding procedure. Plan for LEEP and IUD placement.
[2024-06-12 13:25] LABS: Internal QC Validated? YES +Cl - CLEAR BKGD; Pregnancy, Urine Negative Negative
--- NOTE | 2024-06-12 13:26 | DCINST_ITS ---
Discharge Instructions Diet Discharge Diet: No restrictions DC O2, CPAP, BIPAP needs Home O2 Discharge instructions: No Dressing / Incision Discharge Activity: Return to Normal Activity and [address] Drive (while taking narcotic pain mediations.) May resume sexual activity in: 4 weeks (Nothing in the vagina for 4 weeks.) Dressing / Incision Call your doctor if you observe: Fever of 101 or Higher and Using more than 1 pad per hour Follow Up Care Please Follow Up With: Donna Forte DO When: Call [phone] for follow-up appointment. Test Results: Test results from this visit will be discussed in further detail at your follow- up appointment, if applicable. Discharge Plan Admission Primary Reason for Your Visit: LEEP and IUD placement Attending Provider: Donna Forte Primary Care Provider: Claude Zhang Instructions Print Language: Solomon Islander Discharge Orders/Prescriptions Prescriptions: Continued sertraline [Zoloft] 50 mg tablet 50 mg PO QDAY lorazepam [Ativan] 1 mg tablet 1 mg PO QDAY PRN (Reason: anxiety) Rx Instructions: 1/2 tablet valacyclovir [Valtrex] 1 gram tablet 1,000 mg PO BID PRN (Reason: HERPES) spironolactone 25 mg tablet 25 mg PO QDAY Qty: 90 4RF Discontinued L norgest/e.estradiol-e.estrad [Ashlyna] 0.15 mg-30 mcg (84)/10 mcg (7) tablets,dose pack,3 month 1 tab PO QDAY Referrals / Follow Up: Claude Zhang MD [Primary Care Provider] - Disposition Disposition (needs filled in before D/C Order can be placed): Home, Self Care
--- NOTE | 2024-06-12 14:00 | PRE.ANES_ITS ---
ASA Classification* ASA Classification ASA Classification: 2 Assessment & Plan Anesthesia* Anesthesia Assessment Anesthesia Assessment: Discussed sedation and/or anesthesia options, risks, benefits, and alternatives with patient/parents/legal guardian/POA. Questions invited. The patient/parents/legal guardian/POA seems to understand and agrees to proceed with anesthesia plan. Reviewed the physical assessment, medical history, allergy history and patient home medications list prior to surgery/procedure/anesthetic and documented any changes. Performed airway and anesthesia risk assessments. Anesthesia Type Anesthesia Type: MAC History Source History Obtained from:: Patient and Chart Anesthesia Focused Assessment* Temperature: 98.8 F Pulse Rate: 82 Blood Pressure: 140/96 Respiratory Rate: 16 Pulse Ox: 100 Oxygen Delivery Method: Room Air Airway Assessment Mouth opens: >3 cm Mallampati Score: III Teeth Condition: Intact Neck Range of motion (ROM): Full ROM Focused Labs Anesthesia Preop lab: CBC WBC 9.3 K/mm3 (4.4-11.0) 06/07/24 12:26 06/07/24 RBC 4.85 M/mm3 (4.2-5.4) 06/07/24 12:26 06/07/24 Hgb 14.1 g/dL (12.0-15.0) 06/07/24 12:26 06/07/24 Hct 41.9 % (37-47) 06/07/24 12:26 06/07/24 Plt Count 280 K/mm3 (150-450) 06/07/24 12:26 06/07/24 CHEMISTRY TSH 0.86 uIU/mL (0.358-3.74) 09/27/16 16:44 COAG Urine Test Negative Negative 06/12/24 12:50 06/12/24 Pre-Assessment Diagnosis/Proposed Procedure Planned Operative Procedure(s): LEEP Anesthesia History Anesthesia History - mysql database developer: Anesthesia History - mysql database developer Hx Hospitalization No 05/31/24 14:02 Any Problems With Anesthesia No 05/31/24 14:02 Cholinesterase deficiency No 05/31/24 14:02 You/Your Family Experience No 05/31/24 14:02 fever (hyperthermia) with Relationship Recent Exposure to Contagious No 06/12/24 13:15 Disease Does patient have nerve No 05/31/24 14:02 stimulator Patient instructed to have device shut off --Does patient have Pacemaker No 06/12/24 13:15 or ICD? When Was Last Pacemaker Check QUESTION #4 FULL TEXT: You/Your Family Experience fever (hyperthermia) with Anesthesia Last Oral Intake Last Oral intake: Last Oral Intake NPO since 23:00 06/12/24 13:15 Meds taken in AM with sips of Yes 06/12/24 13:15 water? Meds patient instructed to see chart 06/12/24 13:15 take am of surgery Any additional information?: Yes NPO since: 09:00 (Patient water at 9 AM.) PONV PONV - mysql database developer: PONV - mysql database developer Female Yes 05/31/24 14:02 HX of Motion Sickness No 05/31/24 14:02 HX of N/V After Surgery No 05/31/24 14:02 Non-Smoker Yes 05/31/24 14:02 Duration of Surgery greater No 05/31/24 14:02 than 60 minutes Number of Risk Factors 2 05/31/24 14:02 PONV Score Moderate Risk 05/31/24 14:02 Height & Weight Height & Weight: Anesthesia: Height & Weight Height 5 ft 10 in 06/12/24 13:15 Weight: 80 kg 06/12/24 13:15 Body Mass Index (BMI) 25.2 06/12/24 13:15 Respiratory Assessment Respiratory Assessment - mysql database developer: Respiratory Tract Infection Hx - mysql database developer Hx Respiratory Tract Infection Yes: CURRENTLY FLU A - 05/31/24 14:02 STARTED 05/28/24 Any additional information?: Yes Hx Respiratory Tract Infection: Yes (Patient has been clear of the flu for about a week and a half.) STOP Sleep Apnea STOP Sleep Apnea - mysql database developer: STOP Sleep Apnea - mysql database developer Hx Hypertension No 05/31/24 14:02 Hx Sleep Apnea No 05/31/24 14:02 CPAP BIPAP Do you snore loudly (louder No 05/31/24 14:02 than talking or can be heard Do you often feel tired/ No 05/31/24 14:02 fatigued/ sleepy during daytime? Has anyone observed you stop No 05/31/24 14:02 breathing during sleep? STOP Results Negative 05/31/24 14:02 QUESTION #5 FULL TEXT : Do you snore loudly (louder than talking or can be heard through closed doors)? Tobacco Use History Tobacco Use History - mysql database developer: Tobacco Use History - mysql database developer Tobacco Use Smoking Status Never smoker 05/31/24 14:02 Hx Tobacco Use No 05/31/24 14:02 Years Smoking Packs Smoked per Day Smoking Cessation Date was within the last 15 years Hx Smoking Cessation Date Hx Smoking Cessation Counseling Hematologic Medial History Hematologic Hx - mysql database developer: Hematologic Medical Hx - scrum project manager Hx of Blood Transfusion No 05/31/24 14:02 Hx of Transfusion in last 3 No 05/31/24 14:02 Months Date of Last Transfusion (if within last 3 months) Ever experience any problems No 05/31/24 14:02 with transfusion(s)? Specify any problems Hx of Preganancy in last 3 N/A 05/31/24 14:02 Months Nurse Filling Out Transfusion NBUCHER 05/31/24 14:02 & Questions: Date: 05/31/24 05/31/24 14:02 Time: 14:04 05/31/24 14:02 Patient unable to answer at this time (ie. confused, unrespo /Reproduction History /Reproductive History - mysql database developer: /Reproductive Hx- mysql database developer Hx Now No 05/31/24 14:02 Gestational Age (in weeks): EDC: Hx Hx Para Hx Section SAB No 06/11/24 13:08 Active Medications Active Medications: Current Medications Generic Name Dose Route Start Last Admin Trade Name Freq PRN Reason Stop Dose Admin Sodium Chloride 1,000 mls @ 15 mls/hr 06/12/24 13:00 06/12/24 13:20 IV 06/18/24 02:19 15 mls/hr .Q48H CARLEE Administration Protocol [facility] Medical History Wears contact lenses Syncope Non-smoker Anxiety Genital herpes UTI (urinary tract infection) Home Medications ?Medication ?Instructions ?Recorded ?Last Taken ?Type lorazepam 1 mg tablet (Ativan) 1 mg PO QDAY PRN anxiet y 05/18/24 06/12/24 History sertraline 50 mg tablet (Zoloft) 50 mg PO QDAY 5 06/11/24 History spironolactone 25 mg tablet 25 mg PO QDAY #90 tabs Unknown Rx valacyclovir 1 gram tablet 1,000 mg PO BID PRN HERPES 05/18/24 Unknown History (Valtrex) Allergy/AdvReac Type Severity Reaction Status Date / Time No Known Allergies Allergy Verified 06/12/24 13:13 Family History Mother Diabetes Grandmother No problems noted. Grandmother Breast cancer Father Hypertension Surgical History S/P ureteral reimplantation History of surgical removal of pilonidal cyst (~2019) Social History Smoking Status: Never smoker alcohol intake: never substance use type: does not use caffeine: No what type of physical activity do you participate in: walking frequency: 3-4 times per week seatbelt use: always do you feel safe at home: Yes additional social history: - Jayden Review of Systems (Anesthesia) ROS Narrative System reviewed and no additional complaints, except as documented.
--- NOTE | 2024-06-12 14:35 | CONE_PTH ---
PATIENT: MACARENA STEELE LOC: [facility] – [place] U#:[id number] AGE/SX: 39/F ROOM: RE06/12/[address]: Dr. Donna Forte DO : 1985 BED: DIS: 06/12/2024 SPEC #: [id number] RECD: 06/12/24 17:02 STATUS: YAEL GARCIAIliana #: [id number] CATHERINE: 06/12/24 14:[address]: Donna Forte DEPT: SURGICAL PATHOLOGY RECD BY: Atiya Wing ENTERED: 06/13/24 08:40 SP TYPE: Leep Cone SCAR DR: Dr. 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 Moderate to marked acute and chronic cystic cervicitis with squamous metaplasia. See comment. 06/14/2024 COMMENT Immunohistochemistry ([id number]) for surrogate HPV marker (p16) supports the above diagnosis. Resection margins are free of dysplastic changes, however, dysplastic changes present very close to the ectocervical margin. Case has been reviewed in consultation with Dr. Rodriguez who concurs with the above diagnosis. IDC:FA MICROSCOPIC DESCRIPTION Slides are reviewed. GROSS DESCRIPTION Received in fixative is one container labeled with the patient's name and designated Cervical leep * suture at 12 o'clock*. The specimen consists of a previously opened piece of childers indurated tissue consisting of leep colonization measuring 2 x 2 x 1cm. No mucosal lesion is identified. Non-mucosal surface is inked black. The specimen is serially sectioned and submitted entirely in four cassettes as follows: 1- 12-3o'clock, 2-3-6o'clock, 3-6-9o'clock, 4-9-12o'clock. . 06/13/2024 TC:5 CPT:[id number]
[2024-06-12] MEDS: Levonorgestrel IUD (Liletta) 1 EACH INTRA-UTER (15:10)
[2024-06-12] MEDS: Lidocaine 1% /Epi 1:100 (20ml) 20 ML Vial (15:11)
[2024-06-12] MEDS: FERRIC SUBSULFATE 8 GM SOLN (15:14)
--- NOTE | 2024-06-12 15:29 | PCM.POST.ANE ---
Anesthesia: Postop Eval I Current Vital Signs Temperature: 98.8 F Pulse Rate: 82 Blood Pressure: 140/96 Respiratory Rate: 16 Pulse Ox: 98 Oxygen Delivery Method: Room Air Assessment Airway patent: Yes Spontaneous unlabored respirations: Yes Mental status: Awake and Calm nausea: No Vomiting: No Anesthesia Complication: No Fluid Hydration Crystalloid volume administer (ml): 1,000 Total IV fluid infused: 1,000 Progress Note Anesthesia document: Postop Eval 1 completed: Yes
--- NOTE | 2024-06-12 15:34 | PCM.OPRPT ---
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, contraceptive management Surgery/Procedure Performed: LEEP and insertion of intrauterine device rnp: No Type of Anesthesia: MAC/Supplemental/Local RN Documented Start/Stop Times: Operation Date: 06/12/24 14:35 Case Time Into Pre-Op 06/12/24 12:58 Anesthesia Start 06/12/24 14:39 Into Room 06/12/24 14:39 Out of Pre-Op 06/12/24 14:39 Procedure Start 06/12/24 14:54 Procedure End 06/12/24 15:15 Into Recovery 06/12/24 15:25 Procedure Start Time: 14:54 Procedure Stop Time: 15:15 Select all DRAINS/GRAFTS/IMPLANTS that apply: None Estimated Blood Loss: 5cc Specimen collected: Yes Description of specimen(s) removed: cervical LEEP Description of surgery: Patient was taken to the operating room and placed under MAC anesthesia prepped and draped in normal sterile fashion the dorsal lithotomy position. Paracervical block was placed with 1% lidocaine and using a loop electrode the outer part of the cervix was removed including the squamocolumnar junction. The cervix was cauterized around the borders and the base to obtain excellent hemostasis. 2-0 Vicryl suture was also used in a running locked fashion around the boarders of the fresh cut to ensure hemostasis. The anterior aspect of the cervix was grasped with a long Allis clamp and the liletta IUD was inserted to fundus of the uterus (10 cm). The strings were cut. Monsel's paste was placed and patient was awoken and taken recovery in stable condition. Surgical Findings: normal cervix and vagina Complications Complications: No Admit VTE Documentation VTE Present on Admission: No VTE Mechan Device Prophylaxis: SCD's VTE Pharm Prophylaxis ordered?: No
--- NOTE | 2024-06-12 18:59 | POSTOPAN2_ITS ---
Anesthesia Postop Eval I Sum Postop Eval Completion status Anesthesia document: Postop Eval 1 completed: Yes Anesthesia Postop Eval I Summary Anesthesia Postop Eval I Summary: Anesthesia Postop Eval I: Assessment Summary Airway patent Yes 06/12/24 15:30 [email or web address] [email or web address] Spontaneous unlabored Yes 06/12/24 15:30 PURCHASING [email or web address] respirations Mental status Awake,Calm 06/12/24 15:30 [email or web address] nausea No 06/12/24 15:30 [email or web address] [email or web address] Vomiting No 06/12/24 15:30 [email or web address] [email or web address] Anesthesia Postop Eval I: Fluid Summary Crystalloid volume administer 1,000 06/12/24 15:30 [email or web address] (ml) Colloids volume administered ( ml) Blood Product volume administered (ml) Total IV fluid infused 1,000 06/12/24 15:30 PURCHASING [email or web address] Anesthesia Postop Eval I: Summary Notes Anesthesia Complication No 06/12/24 15:30 PURCHASING [email or web address] Anesthesia Complication Comment: Post-operative progress note Anesthesia: Postop Eval II Evaluation Mental status: Awake and Calm Pain Level: 1 nausea: No Vomiting: No Complications Anesthesia Complication: No
--- NOTE | 2024-06-12 18:59 | PCM.POSTANE2 ---
Anesthesia Postop Eval I Sum Postop Eval Completion status Anesthesia document: Postop Eval 1 completed: Yes Anesthesia Postop Eval I Summary Anesthesia Postop Eval I Summary: Anesthesia Postop Eval I: Assessment Summary Airway patent Yes 06/12/24 15:30 SHEET ROCK [email or web address] Spontaneous unlabored Yes 06/12/24 15:30 SHEET ROCK [email or web address] respirations Mental status Awake,Calm 06/12/24 15:30 SHEET ROCK [email or web address] nausea No 06/12/24 15:30 SHEET ROCK [email or web address] Vomiting No 06/12/24 15:30 SHEET ROCK [email or web address] Anesthesia Postop Eval I: Fluid Summary Crystalloid volume administer 1,000 06/12/24 15:30 SHEET ROCK [email or web address] (ml) Colloids volume administered ( ml) Blood Product volume administered (ml) Total IV fluid infused 1,000 06/12/24 15:30 SHEET ROCK [email or web address] Anesthesia Postop Eval I: Summary Notes Anesthesia Complication No 06/12/24 15:30 SHEET ROCK [email or web address] Anesthesia Complication Comment: Post-operative progress note Anesthesia: Postop Eval II Evaluation Mental status: Awake and Calm Pain Level: 1 nausea: No Vomiting: No Complications Anesthesia Complication: No
== END 2024-06-12 17:28 | disposition home or self-care (01) ==
LOC: SDC 12:49 → AC 12:51
PROVIDERS: PCP Family Medicine; Referring Provider Obstetrics & Gynecology; Visit Provider Obstetrics & Gynecology
PROC: (CPT 58661; principal; 2024-06-12 14:20)
DX: R87.611 Atypical squamous cells cannot exclude high grade squamous intraepithelial lesion on cytologic smear of cervix (ASC-H) (principal); F41.9 Anxiety disorder, unspecified; N72 Inflammatory disease of cervix uteri; Z79.899 Other long term (current) drug therapy
CPT/HCPCS: 57522; 58300; 00940; 81025; 88307; 88341; 88342; J2405